=== PATIENT | male | born 1995 | race Caucasian/White ===

== ENCOUNTER 2024-03-30 10:16 | Inpatient (IN) | payer BC ==
--- OUTSIDE RECORDS SUMMARY | 2024-03-30 10:19 | XMS REPORT | Continuity of Care Document ---
Author Name Unknown Address [address] [facility] [address] [place] [address] [facility] thconnect Address [address] [facility] [address] [place] [address] Care Team Providers Care Contracts Administrator Name Role Phone Basilio Scott Attending Clinician Unavailable Encounters Start Date/Time End Date/Time Encounter Type Admission Type Attending Clinicians Care Facility Care Department Encounter ID Source 2023-01-09 09:56:[address] [facility] [id number] [facility] 2022-12-11 14:44:[address] [facility] [id number] [facility] 2022-11-14 12:37:[address] [facility] [id number] [facility]
[2024-03-30 11:15] LABS: Absolute Lymphocytes (CBC) 0.9 K/uL (0.7-4.9); Absolute Monocytes 0.7 K/uL (0.1-1.3); Absolute Neutrophil 8.1 K/uL (1.8-8.0); Basophils % 0.4 % (0-1.3); Eosinophils % 0.3 % (0-4.4); Hematocrit 45.3 % (39.6-49.0); Hemoglobin 16.2 g/dL (13.6-17.9); Lymphocytes % 9.6 % (15.3-44.8); MCH 31.7 pg (27.0-35.0); MCHC 35.8 g/dL (32.0-36.0); MCV 88.5 fL (80-100); MPV 8.9 fL (7.6-11.3); Monocytes % 7.3 % (3.3-12.3); Neutrophils % 82.4 % (41.7-73.7); Platelets 201 thou/uL (152-406); RBC Red Blood Cell Count 5.11 M/uL (4.33-5.43); Red Cell Distribution Width 12.2 % (12.1-15.2)
[2024-03-30 11:22] LABS: Specific Gravity 1.023 (1.005-1.030); Urine Bilirubin NEGATIVE (Negative); Urine Blood Negative (Negative); Urine Clarity Clear (Clear); Urine Color Light-Yellow (Yellow); Urine Glucose NEGATIVE (Negative); Urine Ketones NEGATIVE (Negative); Urine Microscopic Reflex YN NO UMIC; Urine Nitrite NEGATIVE (Negative); Urine Protein NEGATIVE (Negative); Urine Urobilinogen Normal (Normal); Urine pH 7.5 (5.0-7.0)
--- NOTE | 2024-03-30 11:24 | RAD REPORT ---
EXAMINATION: CT ABDOMEN AND PELVIS WITH CONTRAST CLINICAL INDICATION: ABD PAIN TECHNIQUE: CT abdomen and pelvis was performed, after the administration of IV contrast, [facility]. Axial, sagittal and coronal reconstructions were obtained. One or more of the following dose reduction techniques were used: Automated exposure control, adjustment of the mA and k V according to patient size, and iterative reconstruction. Unless otherwise specified, incidental findings do not require dedicated imaging follow-up. COMPARISON: No prior exam. FINDINGS: LOWER CHEST: The visualized lung bases are clear. LIVER: Normal in size and contour. Small benign cyst measuring 7 mm anterior right lobe of liver.. Gr ossly unremarkable gallbladder. SPLEEN: Normal size. No focal lesion. PANCREAS: No mass, ductal dilation, or sona-pancreatic fluid. ADRENALS: Normal; no mass. KIDNEYS: Normal size and contour. No hydronephrosis. GASTROINTESTINAL TRACT: No evidence of free air, significant intra-abdominal free fluid, bowel obstru ction or abscess. Mild colonic diverticulosis without diverticulitis. APPENDIX: The appendix is thickened in the right lower quadrant measuring up to 9 mm suspicious for e amanda acute appendicitis. LYMPH NODES: No lymphadenopathy. MUSCULOSKELETAL: No acute or suspicious osseous abnormality. ADDITIONAL FINDINGS: Small fat-containing hernia. Urinary bladder is partially decompressed. IMPRESSION: Findings are suspicious for early acute appendicitis.
[2024-03-30 11:32] LABS: Albumin 4.3 g/dL (3.4-5.0); Albumin/Globulin Ratio 1.3 (1.1-1.8); Bilirubin Total 2.3 mg/dL (0.2-1.0); Globulin 3.3 g/dL (2.3-3.5); Protein, Total 7.6 g/dL (6.4-8.2)
[2024-03-30] MEDS ORDERED: MORPHINE 4 MG/ML SYR ONE (11:43)
[2024-03-30] MEDS ORDERED: NA CHLORIDE 0.9% 100 ML ONE (11:43)
[2024-03-30] MEDS ORDERED: ONDANSETRON 4 MG/2 ML VIAL ONE ×2 (11:43→12:24)
[2024-03-30] MEDS ORDERED: NA CHLORIDE 0.9% 1,000 ML ONE (11:43)
[2024-03-30] MEDS ORDERED: PIPERACIL/TAZO 3.375 GM VIAL IV ONE (11:43)
[2024-03-30] MEDS ORDERED: propofoL 200 MG/20 ML VIAL IV ONE (12:24)
[2024-03-30] MEDS ORDERED: FENTANYL CITR 100 MCG/2 ML ONE ×2 (12:24→13:25)
[2024-03-30] MEDS ORDERED: LIDOCAINE 2% MPF 5 ML VIAL ONE (12:24)
[2024-03-30] MEDS ORDERED: MIDAZOLAM HCL 2 MG/2 ML INJ ONE (12:25)
[2024-03-30] MEDS ORDERED: ROCURONIUM 50 MG/5 ML VIAL IV ONE (12:25)
[2024-03-30] MEDS ORDERED: FAMOTIDINE 20 MG/2 ML VIAL IV ONE (12:32)
--- NOTE | 2024-03-30 12:39 | EDPHYS ---
Physician Documentation [facility] Name: Amado Cardona Age: 28 yrs Sex: Male : 1995 Arrival Date: 03/30/2024 Time: 10:16 Bed 9 Private MD: ED Physician Zachary Honeycutt HPI: 03/30 11:31 This 28 yrs old Male presents to ER via Ambulatory with complaints of dr5 Abdominal Pain. 11:31 The patient presents with abdominal pain right lower quadrant. Onset: The dr5 symptoms/episode began/occurred yesterday. Patient is a 28-year-old male with no past medical history coming in with right lower quadrant abdominal pain that started last night. Patient reports his pain was intense and has since eased with subjective fever at home. Patient denies nausea, vomiting, diarrhea.. Historical: - Allergies: 10:44 No Known Allergies; ap3 - Home Meds: 10:44 None [Active]; ap3 - PMHx: 10:44 None; ap3 - PSHx: 10:44 Tonsillectomy; ap3 - Immunization history:: Adult Immunizations up to date. - Infectious Disease History:: Denies. - Social history:: Smoking status: Patient denies any tobacco usage or history of. ROS: 11:31 Constitutional: as per hpi dr5 Exam: 11:31 Constitutional: This is a well developed, well nourished patient who is awake, alert, dr5 and in no acute distress. Head/Face: Normocephalic, atraumatic. Eyes: Pupils equal round and reactive to light, extra-ocular motions intact. Lids and lashes normal. Conjunctiva and sclera are non-icteric and not injected. Cornea within normal limits. Periorbital areas with no swelling, redness, or edema. ENT: Nares patent. No nasal discharge, no septal abnormalities noted. Tympanic membranes are normal and external auditory canals are clear. Oropharynx with no redness, swelling, or masses, exudates, or evidence of obstruction, uvula midline. Mucous membranes moist. Neck: Trachea midline, no thyromegaly or masses palpated, and no cervical lymphadenopathy. Supple, full range of motion without nuchal rigidity, or vertebral point tenderness. No Meningismus. Chest/axilla: Normal chest wall appearance and motion. Nontender with no deformity. No lesions are appreciated. Respiratory: Lungs have equal breath sounds bilaterally, clear to auscultation. No rales, rhonchi or wheezes noted. No increased work of breathing, no retractions or nasal flaring. 11:31 Skin: Warm, dry with normal turgor. Normal color with no rashes, no lesions, and no evidence of cellulitis. Neuro: Awake and alert, GCS 15, oriented to person, place, time, and situation. Cranial nerves II-XII grossly intact. Motor strength 5/5 in all extremities. Sensory grossly intact. Cerebellar exam normal. Normal gait. 11:31 Abdomen/GI: Inspection: abdomen appears normal, Bowel sounds: normal, Palpation: moderate abdominal tenderness, in the right lower quadrant, rebound tenderness, is appreciated in the right lower quadrant, Vital Signs: 10:42 BP 121 / 78; Pulse 89; Resp 18; Temp 99; Pulse Ox 99% ; Weight 83.91 kg; Height 5 ft. 5 ap3 in. ; Pain 6/10; 12:33 BP 141 / 88; Pulse 88; Resp 17; Pulse Ox 99% ; jl7 10:42 Body Mass Index 30.79 (83.91 kg, 165.1 cm) ap3 10:42 Pain Scale: Adult ap3 MDM: 10:22 Medical Screening Exam initiated rn 11:44 ED course: Spoke with Dr. Valdovinos who will come evaluate the patient.. dr5 13:28 Differential diagnosis: appendicitis, cholecystitis, Cholelithiasis, diverticulitis. dr5 Data reviewed: vital signs, nurses notes, radiologic studies, CT scan. Management of patient was discussed with the following: Student Life Advisor: Bonifacio. Care significantly affected by the following Social Determinants of Health: Poor access to healthcare and/or lack of insurance, Poor access to transportation, Problems related to employment. Counseling: I had a detailed discussion with the patient and/or guardian regarding the historical points, exam findings, and any diagnostic results supporting the discharge/admit diagnosis, the presence of at least one elevated blood pressure reading (>120/80) during this emergency department visit, lab results, radiology results, the need for further work-up and treatment in the hospital. ED course: Patient will be taken to the OR for appendectomy. Zosyn given in ER.. 03/30 10:47 Order name: CBC with Diff; Complete Time: 11:21 dr5 03/30 10:47 Order name: CMP; Complete Time: 11: dr5 03/30 10:47 Order name: Lipase; Complete Time: 11: dr5 03/30 10:47 Order name: Urinalysis w/ reflexes; Complete Time: 11: dr5 03/30 10:47 Order name: CT Abd/Pelvis - IV Contrast Only; Complete Time: 11: dr5 03/30 10:47 Order name: IV Saline Lock; Complete Time: 11: dr5 03/30 10:47 Order name: Labs collected and sent; Complete Time: 11: dr5 Administered Medications: 12:22 Not Given (Patient Refused): ondansetron 4 mg IVP once; over 2 minutes jl7 12:22 Not Given (Patient Refused): morphineor iv 4 mg IVP once over 4 mins jl7 12:22 Drug: NS 0.9% IV 1000 ml IV at 1 bolus Per protocol; to be given as a bolus over 60 jl7 minutes Route: IV; Rate: 1 bolus; Site: left antecubital; 12:40 Follow up: IV Status: Infusion continued upon admission jl7 12:22 Drug: Piperacillin-Tazobactam IVPB 3.375 grams IVPB once over 60 mins; (mix in NS 100 jl7 mL) Route: IVPB; Infused Over: 60 mins; Site: left antecubital; 12:40 Follow up: IV Status: Infusion continued upon admission jl7 Disposition: 17:24 Co-signature as Attending Physician, Zachary Honeycutt MD I reviewed the patient's care rn provided by the Advanced Practice Provider and agree with the diagnosis and treatment plan. Disposition Summary: 03/30/24 12:38 Hospitalization Ordered Notes: Hospitalization Status: Observation dr5 Provider: Mani Valdovinos dr5 Location: Operating Room dr5 Condition: Stable dr5 Problem: new dr5 Symptoms: are unchanged dr5 Bed/Room Type: Standard dr5 Room Assignment: dr5 Diagnosis - Acute appendicitis with localized peritonitis dr5 Discharge Instructions: - Discharge Summary Sheet bd Forms: - SBAR form bd - Medication Reconciliation Form dr5 - Leadership Thank You Letter dr5 Signatures: Dispatcher [employer] EDZachary Garcia MD MD rn Leal, Jahala, RN RN jl7 Zoie Chavarria RN RN ap3 Ru Garcia, CASINO ENFORCEMENT AGENT-C CASINO ENFORCEMENT AGENT-Cdr5 Corrections: (The following items were deleted from the chart) 10:47 10:47 CBC+H.LAB.BRZ ordered. EDMS EDMS 10:47 10:47 COMPREHENSIVE METABOLIC PANEL+C.LAB.BRZ ordered. EDMS EDMS 10:47 10:47 LIPASE+C.LAB.BRZ ordered. EDMS EDMS 10:47 10:47 Urinalysis+U.LAB.BRZ ordered. EDMS EDMS 10:47 10:47 Abdomen Pelvis W Con+CT.RAD.BRZ ordered. EDMS EDMS
--- NOTE | 2024-03-30 12:39 | ER ---
Nurse's Notes [facility] Name: Amado Cardona Age: 28 yrs Sex: Male : 1995 Arrival Date: 03/30/2024 Time: 10:16 Bed 9 Private MD: Diagnosis: Acute appendicitis with localized peritonitis Presentation: 03/30 10:42 Chief complaint: Patient states: he started having right lower abdominal pain that ap3 started last night and was getting worse. patient states the pain got better, but never went away. patient states the pain does not radiate. patient currently rates his pain as a 6/10 on the pain scale. patient reports nausea last night but no vomiting. Coronavirus screen: At this time, the client does not indicate any symptoms associated with coronavirus-19. Ebola Screen: No symptoms or risks identified at this time. Initial Sepsis Screen: Does the patient meet any 2 criteria? No. Patient's initial sepsis screen is negative. Does the patient have a suspected source of infection? No. Patient's initial sepsis screen is negative. Risk Assessment: Do you want to hurt yourself or someone else? Patient reports no desire to harm self or others. Onset of symptoms was March 29, 2024. 10:42 Method Of Arrival: Ambulatory ap3 10:42 Acuity: SHANIKA 3 ap3 Triage Assessment: 10:45 General: Appears in no apparent distress. Behavior is calm, cooperative, appropriate ap3 for age. Pain: Complains of pain in abdomen. Neuro: Level of Consciousness is awake, alert, obeys commands, Oriented to person, place, time, situation, Appropriate for age. Cardiovascular: Patient's skin is warm and dry. Respiratory: Airway is patent Respiratory effort is even, unlabored, Respiratory pattern is regular, symmetrical. GI: Reports lower abdominal pain, nausea. Historical: - Allergies: 10:44 No Known Allergies; ap3 - Home Meds: 10:44 None [Active]; ap3 - PMHx: 10:44 None; ap3 - PSHx: 10:44 Tonsillectomy; ap3 - Immunization history:: Adult Immunizations up to date. - Infectious Disease History:: Denies. - Social history:: Smoking status: Patient denies any tobacco usage or history of. Screenin:45 [facility] ED Fall Risk Assessment (Adult) History of falling in the last 3 months, ap3 including since admission No falls in past 3 months (0 pts) Confusion or Disorientation No (0 pts) Intoxicated or Sedated No (0 pts) Impaired Gait No (0 pts) Mobility Assist Device Used No (0 pt) Altered Elimination No (0 pt) Score/Fall Risk Level 0 - 2 = Low Risk Oriented to surroundings, Maintained a safe environment, Educated pt \T\ family on fall prevention, incl call for assistance when getting out of bed, Assessed \T\ reinforced patient's understanding of fall precautions, Hourly rounding (assess needs \T\ fall precautionary measures) done, Used ambulatory aids as needed (educated on \T\ assisted with), Used gait belt as appropriate. Abuse screen: Denies threats or abuse. Nutritional screening: No deficits noted. Tuberculosis screening: No symptoms or risk factors identified. Assessment: 11:45 Reassessment: Dr. Valdovinos at bedside. jl7 12:33 Reassessment: WEATHER OBSERVER at bedside to transport pt to OR. jl7 Vital Signs: 10:42 BP 121 / 78; Pulse 89; Resp 18; Temp 99; Pulse Ox 99% ; Weight 83.91 kg; Height 5 ft. 5 ap3 in. ; Pain 6/10; 12:33 BP 141 / 88; Pulse 88; Resp 17; Pulse Ox 99% ; jl7 10:42 Body Mass Index 30.79 (83.91 kg, 165.1 cm) ap3 10:42 Pain Scale: Adult ap3 ED Course: 10:21 Patient arrived in ED. sj2 10:21 Zachary Honeycutt MD is Attending Physician. rn 10:44 Triage completed. ap3 10:45 Arm band placed on right wrist. ap3 10:47 Ru Garcia FNP-C is PHCP. dr5 11:10 CBC with Diff Sent. bc6 11:10 CMP Sent. bc6 11:10 Lipase Sent. bc6 11:10 Initial lab(s) drawn, by me, sent to lab. Inserted saline lock: 20 gauge in left bc6 antecubital area, using aseptic technique. Blood collected. Flushed with 10 mL NS. 11:14 Urinalysis w/ reflexes Sent. bc6 11:14 Urine collected: clean catch specimen, cloudy. bc6 11:17 CT Abd/Pelvis - IV Contrast Only In Process Unspecified. EDMS 11:41 Gil, Jahala, RN is Primary Nurse. jl7 11:53 Patient has correct armband on for positive identification. Provided Education on: use jl7 of call fong. 12:33 No provider procedures requiring assistance completed. Patient admitted, IV remains in jl7 place. intact, No redness/swelling at site. 12:38 Mani Valdovinos MD is Hospitalizing Provider. dr5 Administered Medications: 12:22 Not Given (Patient Refused): ondansetron 4 mg IVP once; over 2 minutes jl7 12:22 Not Given (Patient Refused): morphineor iv 4 mg IVP once over 4 mins jl7 12:22 Drug: NS 0.9% IV 1000 ml IV at 1 bolus Per protocol; to be given as a bolus over 60 jl7 minutes Route: IV; Rate: 1 bolus; Site: left antecubital; 12:40 Follow up: IV Status: Infusion continued upon admission jl7 12:22 Drug: Piperacillin-Tazobactam IVPB 3.375 grams IVPB once over 60 mins; (mix in NS 100 jl7 mL) Route: IVPB; Infused Over: 60 mins; Site: left antecubital; 12:40 Follow up: IV Status: Infusion continued upon admission jl7 Medication: 11:53 VIS not applicable for this client. jl7 Outcome: 12:33 Admitted to OR family with patient, via wheelchair, with chart, jl7 12:33 Condition: stable 12:33 Discharge instructions given to patient, family, Instructed on the need for admit, Demonstrated understanding of instructions, 12:38 Decision to Hospitalize by Provider. dr5 12:44 Patient left the ED. jl7 Signatures: Dispatcher [employer] EDMS Zachary Honeycutt MD MD rn Leal, Jahala, RN RN jl7 Zoie Chavarria RN RN ap3 [address] bc6 Jennifer Raza sj2 Ru Garcia, PAINTING DEPARTMENT SUPERVISOR-C PAINTING DEPARTMENT SUPERVISOR-Cdr5
[2024-03-30] MEDS ORDERED: BSS OPTHALMIC SOL 15 ML OPTH ONE (12:56)
[2024-03-30] MEDS ORDERED: dexAMETHasone 10 MG/ML VIAL ONE (13:39)
[2024-03-30] MEDS ORDERED: KETOROLAC 30 MG/ML INJ ONE (13:39)
[2024-03-30] MEDS: LIDOCAINE HCL/EPINEPHRINE 20 ML MDV ONE (13:43)
--- NOTE | 2024-03-30 14:01 | P.OP ---
Preoperative diagnosis: Acute Appendicitis Postoperative diagnosis: Acute Appendicitis Primary procedure: Laparoscopic Appendectomy Anesthesia: GETA + Local Estimated blood loss: <5cc Specimen: Appendix Findings: Non-Perforated Acute Appendicitis Complications: None Transferred to: Recovery Room Condition: Good
[2024-03-30] MEDS: MEPERIDINE HCL 25 MG/ML SYR ONE (14:21)
[2024-03-30] MEDS ORDERED: SUGAMMADEX SODIUM 200 MG/2 ML VIAL IV ONE (14:22)
[2024-03-30 14:48] VITALS: O2SAT 96
[2024-03-30] MEDS ORDERED: HYDROCODONE/APAP 7.5/325 MG TAB ONE (15:11)
[2024-03-30] MEDS: HYDROCODONE/APAP 7.5/325 MG TAB PO ONE (15:15)
[2024-03-30 15:35] VITALS: BP 130/72; TEMP 98.4
--- NOTE | 2024-03-31 01:34 | OP ---
Date of Procedure: 03/30/2024 Surgeon: Rickie Valdovinos MD, Preoperative Diagnosis: Acute appendicitis. Postoperative Diagnosis: Acute appendicitis. Procedure Performed: Laparoscopic appendectomy. Anesthesia: General endotracheal plus local 1% lidocaine with epinephrine. Estimated Blood Loss: 5 cc. Specimen: Vermiform appendix. Findings: Acute nonperforated appendicitis. Complications: None. Disposition: The patient was transferred to recovery room in good condition. Procedure In Detail: After informed was obtained, the patient was brought to the operating room, pre pped and draped in the usual sterile fashion. After adequate anesthesia was achieved, I anesthetized an area in the infraumbilical position down to subcutaneous tissues. A 5 mm 0-degree optical trocar was introduced into the abdomen without incident or complication. Insufflation was obtained to 15 m mHg, at this time. There was no injury to vital structures upon entry into the abdomen. Two additio nal trocars were placed, one in the epigastrium, and one in the right upper quadrant. Both of these were similarly anesthetized and sharply incised. A 5 mm trocar was placed under direct visualization without incident or complication. The umbilical trocar was then upsized to 12 mm under direct visua lization without incident or complication. At this point, the patient was positioned head up right-s jose rafael up position. Ratcheted grasper was used to grasp the patient's appendix. At this point, I eleva rickie and a mesoappendiceal window was created at the base of the appendix using a [place] retractor. Endo-VINCENT 45 purple load fired across the base of the appendix at the confluence of the cecum with go od approximation of tissues. At this point, I used a LigaSure to take down the mesoappendix without incident or complication. The appendix was then placed in EndoCatch bag, removed through the umbilic al trocar and sent off for pathologic examination. The abdomen was copiously irrigated after reinfla tion was obtained at this point, and the patient positioned back in neutral position. Remainder of t he effluent was suctioned out. The Salvatore-Chuckie suture passer was then used to close the 12 mm tr ocar site at the umbilicus without incident or complication with good apposition of tissues. The abd omen was then desufflated under direct visualization without incident or complication. Remainder of the trocar was removed. All skin incisions were then copiously irrigated and closed with a 4-0 Monoc ryl in a running fashion. Dermabond was placed over top. The patient tolerated procedure without in cident or complication, and transferred to PACU in good condition. All counts were correct at the en d of the case. JENNIFER/KALIE Voice ID: [id number] Report ID: [id number]
== END 2024-03-30 15:50 | disposition home or self-care (01) | DRG 399 ==
LOC: ER 10:16 → ERHOLD 12:40
PROVIDERS: ADMIT Surgery; ATTEND Emergency Medicine
PROC: 0DTJ4ZZ Resection of Appendix, Percutaneous Endoscopic Approach (ICD-10-PCS; principal; 2024-03-30 12:45)
DX: K35.30 Acute appendicitis with localized peritonitis, without perforation or gangrene (principal)
CPT/HCPCS: 36415; 74177; 80053; 81003; 83690; 85025; 88304; 96365; 99285; A4314; J1100; J2003; J2175; J2250; J2405; J2543; J2704; J3010; J7030; Q9967